=== PATIENT | female | born 1995 | race Caucasian/White ===

== ENCOUNTER 2024-08-27 09:20 | Inpatient (IN) | payer OTHER ==
[2024-08-27 10:05] VITALS: BMI 23.9
[2024-08-27 10:14] LABS: Fetal Membranes Rupture RUPTURE DETECTED (No Rupture)
[2024-08-27] MEDS ORDERED: hydrALAZINE 20 MG/ML VIAL SLOW IVP PRN (13:55)
[2024-08-27] MEDS ORDERED: Misoprostol 200 MCG TAB PR PRN (13:55)
[2024-08-27] MEDS ORDERED: Promethazine HCl 25 MG/ML VIAL IM PRN (13:55)
[2024-08-27] MEDS ORDERED: Acetaminophen 500 MG TAB PO PRN (13:55)
[2024-08-27] MEDS ORDERED: Ibuprofen 800 MG TAB PO PRN (13:55)
[2024-08-27] MEDS ORDERED: Carboprost 250 MCG/ML AMP IM PRN (13:55)
[2024-08-27] MEDS ORDERED: fentaNYL 50 mcg/mL 1 mL Vial SLOW IVP PRN (13:55)
[2024-08-27] MEDS ORDERED: Diphenoxylate HCl/Atropine Tablet PO PRN (13:55)
[2024-08-27] MEDS ORDERED: HYDROcodone/Acetaminophen 5/325 mg Tablet PO PRN (13:55)
[2024-08-27] MEDS ORDERED: Ondansetron PF 4 MG/2 ML Vial IVP PRN (13:55)
[2024-08-27] MEDS ORDERED: Methylergonovine 0.2 MG/ML VIAL IM PRN (13:55)
[2024-08-27] MEDS ORDERED: Lidocaine 1% (PF) 30 ML VIAL SC PRN (13:55)
[2024-08-27] MEDS ORDERED: Oxytocin 30 units/NS 500 ML 500 ML IV SCH ×2 (14:00)
[2024-08-27 14:05] LABS: Hematocrit 36.4 % (34.9-44.5); Mean Corpuscular Hemoglobin 27.3 pg (27.0-33.0); Mean Corpuscular Volume 82.7 fL (81.6-98.3); Mean Platelet Volume 9.6 fL (7.4-10.4); Platelet Count 265 10x3/uL (150-450); RBC Distribution Width 12.4 % (11.5-14.5); White Blood Cell (WBC) Count 7.19 10x3/uL (3.5-10.5)
[2024-08-27] MEDS: Misoprostol 100 MCG TAB PO SCH (14:10)
[2024-08-27] MEDS: Lactated Ringer's 1,000 ML IV SCH (14:11)
[2024-08-27 14:35] LABS: Syphilis Antibody Nonreactive (Nonreactive); Syphilis Antibody Index 0.09 S/CO (<1.00 Non-Reactive)
[2024-08-27 14:36] LABS: HBsAg Index 0.17 S/CO (0-0.99); Hep B Surf Ag - L&D Non-Reactive S/CO (NonReactive)
[2024-08-28] MEDS: fentaNYL/Ropivacaine Epidural 100 ML ONE (01:12)
[2024-08-28] MEDS ORDERED: Moisturizing Cream (Eucerin) 113 GM JAR TOP PRN (01:37)
[2024-08-28] MEDS ORDERED: Ondansetron PF 4 MG/2 ML Vial IVP PRN ×2 (01:37→19:50)
[2024-08-28] MEDS ORDERED: Acetaminophen 325 MG TAB PO PRN (01:37)
[2024-08-28] MEDS ORDERED: Naloxone HCl 0.4 mg/ml Vial IVP PRN ×2 (01:37)
[2024-08-28] MEDS ORDERED: Promethazine HCl 25 MG/ML VIAL IM PRN ×2 (01:37→19:50)
[2024-08-28] MEDS ORDERED: ePHEDrine Sulfate 50 MG/10 ML VIAL SLOW IVP PRN (01:37)
[2024-08-28] MEDS ORDERED: Lactated Ringer's 500 ML IV PRN (01:37)
[2024-08-28] MEDS ORDERED: diphenhydrAMINE 50 MG/ML VIAL IVP PRN (01:37)
[2024-08-28] MEDS ORDERED: Communication Order-Pharmacy FS SCH (01:45)
[2024-08-28] MEDS ORDERED: fentaNYL 2 mcg/Ropivacaine 0.2% Epidural 100 ML CADD EPIDURAL SCH (01:45)
[2024-08-28] MEDS: Oxytocin 30 units/NS 500 ML 500 ML IVPB SCH (19:20)
[2024-08-28] MEDS ORDERED: Lanolin Ointment 7 GM TUBE TOP PRN (19:50)
[2024-08-28] MEDS ORDERED: HYDROcodone/Acetaminophen 5/325 mg Tablet PO PRN (19:50)
[2024-08-28] MEDS ORDERED: Preparation H Ointment 28 GM TUBE PR PRN (19:50)
[2024-08-28] MEDS ORDERED: Benzocaine-Menthol 82.5 ML CAN TOP PRN (19:50)
[2024-08-28] MEDS ORDERED: diphenhydrAMINE 25 MG CAP PO PRN (19:50)
[2024-08-28] MEDS ORDERED: Milk Of Magnesia 30 ML UDCUP PO PRN (19:50)
[2024-08-28] MEDS ORDERED: hydrALAZINE 20 MG/ML VIAL SLOW IVP PRN (19:50)
[2024-08-28] MEDS ORDERED: Bisacodyl 10 MG SUPP PR PRN (19:50)
[2024-08-28] MEDS: HYDROcodone/Acetaminophen 5/325 mg Tablet PO PRN (19:59)
[2024-08-28] MEDS: Ibuprofen 800 MG TAB PO SCH (20:49)
[2024-08-28] MEDS: Boostrix 0.5 ML (Tdap) VIAL (>/=7 yrs of age) IM ONE (22:50)
[2024-08-28] MEDS: Docusate 100 MG CAP PO SCH (22:51)
[2024-08-29] MEDS: Ferrous Sulfate 325 MG TAB PO SCH (08:51)
[2024-08-29] MEDS: Prenatal Vitamin 1 TAB PO SCH (09:07)
[2024-08-30 09:56] VITALS: BP 127/73; TEMP 97.8
== END 2024-08-30 12:00 | disposition home or self-care (01) | DRG 807 ==
LOC: CSHLD/OP 09:20 → CSHLD 10:50 → CSHPED 08-28 21:00 → CSHPP 08-29 17:42
PROVIDERS: ADMIT Student in an Organized Health Care Education/Training Program; ATTEND Student in an Organized Health Care Education/Training Program
PROC: 3E0DXGC Introduction of Other Therapeutic Substance into Mouth and Pharynx, External Approach (ICD-10-PCS; 2024-08-27)
PROC: 10E0XZZ Delivery of Products of Conception, External Approach (ICD-10-PCS; principal; 2024-08-28)
PROC: 0HQ9XZZ Repair Perineum Skin, External Approach (ICD-10-PCS; 2024-08-28)
DX: O42.02 Full-term premature rupture of membranes, onset of labor within 24 hours of rupture (principal); Z37.0 Single live birth; O69.81X0 Labor and delivery complicated by cord around neck, without compression, not applicable or unspecified; O70.0 First degree perineal laceration during delivery; Z3A.40 40 weeks gestation of pregnancy
CPT/HCPCS: 36415; 51702; 84112; 85027; 86780; 86850; 86900; 86901; 87340; 99285; J2590; J7120